=== PATIENT | female | born 1970 | race Caucasian/White ===

== ENCOUNTER 2017-04-26 19:44 | Emergency (ER) | payer OTHER ==
[~2017-04-26] VITALS: Ht 162.6 cm; Wt 85.0 kg
[~2017-04-26 19:44] MED LIST: XANA2TAB2 PO
[2017-04-26 19:48] VITALS: BP 196/118; PULSE 75; RESP 16; TEMP 98; O2SAT 100
[2017-04-26] MEDS ORDERED: LIDOCAINE 1%/EPINEPHrine 1:100,000 SOLN 20 ML VIAL INFIL ONE (22:15)
--- NOTE | 2017-04-26 22:20 | PD ---
HPI . Right breast abscess Chief Complaint: Skin Problem Time Seen by Provider: 21:55 Travel History International Travel<30 days: No Contact w/Intl Traveler<30days: No Traveled to known affect area: No History of Present Illness HPI Patient presents complaining with a right breast abscess which has been present for 2 weeks and which is getting progressively worse. She states that it is very painful. She rates the pain as 6/10. The pain has been unrelieved by warm compresses and Epsom salt soaks. There has been no spontaneous drainage. She has not been a fever. Patient reports multiple skin lesions in the recent past. She states she has been evaluated by her primary care physician and is being referred to rheumatology for further evaluation. The patient reports that she was treated with a course of Bactrim approximately 2 weeks ago because of the skin lesions. PFSH Past Medical History Arthritis: Yes Asthma: Yes Anxiety: Yes Heart Rhythm Problems: Yes (SVT) Cancer: Yes (THYROID) Cardiac Catheterization: Yes (X 2) Cardiovascular Problems: Yes (SVT) High Cholesterol: No Congestive Heart Failure: No COPD: No Cerebrovascular Accident: No Diabetes: No Diminished Hearing: No GERD: No Headaches: No Hepatitis: No Hiatal Hernia: No Hypertension: No Implanted Vascular Access Dvce: No Kidney Stones: No Musculoskeletal: Yes Neurologic: Yes Reproductive: Yes (ENDOMETREOSIS) Respiratory: Yes (ASTHMA) Immunizations Current: No Migraines: No Myocardial Infarction: No Renal Failure: No Seizures: No Sickle Cell Disease: No Sleep Apnea: No Ulcer: No PNEUMOCCOCAL Vaccine (Year): 1 : 4 Para: 2 Miscarriage: 2 Tubal Ligation: Yes Past Surgical History Abdominal Surgery: Yes (LEFT BREAST BIOPSY 1991) AICD: No Appendectomy: No Cardiac Surgery: Yes (CARDIAC CATH X2 1989 AND 1992) Section: Yes (X2) Cholecystectomy: No Ear Surgery: No Endocrine Surgery: Yes (Thyroid removal for thyroid cancer) Eye Surgery: No Genitourinary Surgery: No Gynecologic Surgery: Yes (LT BREAST CYST) Insulin Pump: No Neurologic Surgery: No Oral Surgery: Yes Other Surgery: Yes (CYST REMOVED LEFT BREAST.) Social History Alcohol Use: No Tobacco Use: No Substance Use: No Allergies-Medications (Allergen,Severity, Reaction): Coded Allergies: Codeine (Verified Allergy, Severe, Rash, 10/24/16) Erythromycin (Verified Allergy, Severe, Hives, 10/24/16) Reported Meds & Prescriptions Reported Meds & Active Scripts Active Reported Xanax (Alprazolam) 2 Mg Tab 2 Mg PO DAILY PRN Review of Systems Except as stated in HPI: all other systems reviewed are Neg General / Constitutional: No: Fever, Chills Skin: Positive Change in Pigmentation, Positive Lesions Physical Exam Narrative GENERAL: Awake and alert and in no acute distress. SKIN: Warm and dry. She does have multiple scabbed lesions added over her body. She has an area of induration and erythema on the right lateral breast. It is almost in the axilla. It's about the size of a quarter. HEAD: Atraumatic. Normocephalic. EYES: Pupils equal and round. NECK: Trachea midline. CARDIOVASCULAR: Regular rate and rhythm. RESPIRATORY: No accessory muscle use. MUSCULOSKELETAL: No obvious deformities. No edema. NEUROLOGICAL: Awake and alert. No obvious cranial nerve deficits. Motor grossly within normal limits. Normal speech. PSYCHIATRIC: Appropriate mood and affect; insight and judgment normal. Data Data Last Documented VS Vital Signs Date Time Temp Pulse Resp B/P Pulse Ox O2 Delivery O2 Flow Rate FiO2 04/26/17 19:48 98.0 75 16 196/118 100 Room Air Orders Non-Formulary Drug (04/26/17 22:30) MDM Medical Decision Making Medical Screen Exam Complete: Yes Emergency Medical Condition: Yes Differential Diagnosis My differential diagnosis includes but is not limited to localized wound infection, cellulitis, abscess Narrative Course Patient presents with an area of induration and erythema in the right breast tissue. I will I&D it. Procedures Procedure Narrative After the risks and benefits were discussed the following procedure was performed: INCISION AND DRAINAGE OF ABSCESS: The area was prepped and was sterilely draped. A subcutaneous wheal of 1% Xylocaine with epi with a total number 5 mL was used to anesthetize the area. The area was properly anesthetized. A number 11 scalpel was used to make a 1-cm incision across the area of the abscess. The abscess was drained. Sterile dressing applied. Diagnosis Primary Impression: Abscess Patient Instructions: Abscess (ED), General Instructions Med/Other Pt SpecificInfo: Prescription(s) given Scripts Tramadol (Ultram)50 Mg Tab50 Mg PO Q4H PRN (PAIN) #12 TAB Ref 0 Prov:Gabby Delcid MD 04/26/17 Clindamycin 300 Mg Bwa011 Mg PO Q8H 10 Days Ref 0 Prov:Gabby Delcid MD 04/26/17 Disposition: 01 DISCHARGE HOME Condition: Stable Gabby Delcid MD Apr 26, 2017 22:20
[2017-04-26] MEDS ORDERED: LIDOCAINE 1%/EPINEPHrine 1:200,000 PF SOLN 10 ML VIAL INFIL ONE (22:30)
[2017-04-26] MEDS ORDERED: NON-FORMULARY DRUG INH ONE (22:30)
[2017-04-26] MEDS ORDERED: CLIN1CAP6 PO (23:23)
[2017-04-26] MEDS ORDERED: ULTR50TA5 PO (23:23)
[2017-04-26] MEDS ORDERED: traMADol HCL 50 MG TAB PO ONE (23:30)
[2017-04-26] MEDS ORDERED: CLINDAMYCIN 150 MG CAP PO ONE (23:30)
[2017-04-26 23:50] VITALS: BP 180/79; PULSE 72; RESP 18; O2SAT 98
[2017-04-26] MEDS ORDERED: NORC5TAB PO (23:51)
== END 2017-04-27 00:13 | disposition home or self-care (01) ==
LOC: NEPC 19:44
DX: N61.1 Abscess of the breast and nipple (principal); J45.909 Unspecified asthma, uncomplicated
CPT/HCPCS: 10060